=== PATIENT | female | born 1945 | race Caucasian/White ===

== ENCOUNTER 2019-01-31 11:43 | Inpatient (IN) ==
[2019-01-31] MEDS ORDERED: SODIUM CHLORIDE 0.9% 1,000 ML IV STA ×2 (12:15→13:57)
[2019-01-31] MEDS ORDERED: LEVOFLOXACIN INJ 750 MG in PREMIX 1 EACH IV STA (12:15)
[2019-01-31 12:59] LABS: Basophils # 0.1 10*3/uL (0.0-0.2); Basophils % 0.6 % (0.0-0.8); Eosinophils % 0.3 % (0.00-10.9); Hematocrit 44.9 VOL% (35.7-47.0); Hemoglobin 13.5 GM/DL (12.0-16.0); Immature Granulocytes % 0.7 %; Lymphocytes # 2.3 10*3/uL (1.4-4.0); Lymphocytes % 15.2 % (21.3-54.2); Mean Corpuscular HGB Conc 30.1 GM/DL (32-36); Mean Corpuscular Volume 102.3 FL (87-102); Mean Platelet Volume 11.2 FL (9.6-12.0); Monocytes % 9.6 % (1.7-12.7); NRBC # 0.06 10*3/uL; Neutrophils % 73.6 % (38.7-73.9); Platelet Count 325 T/CUMM (130-400); Red Blood Count 4.39 MC/CUMM (3.8-5.5); White Blood Count 15.1 T/CUMM (4-12)
[2019-01-31 13:03] LABS: Albumin 2.7 G/DL (3.4-5.0); Bilirubin,Total 0.7 MG/DL (0.2-1.0); Calcium 8.6 MG/DL (8.5-10.1); Osmolality,Calculated 314.9 MOS/KG (273-304)
[2019-01-31 13:09] LABS: Free T4 (Free Thyroxine) 1.82 NG/DL (0.76-1.46); Thyroid Stimulating Hormone 1.2 uIU/ml (0.358-3.74)
[2019-01-31 13:32] LABS: Apearance,Urine CLOUDY (Clear); Bacteria,Urine Many /HPF (Few); Bilirubin,Urine Negative (Negative); Blood, Urine Moderate mg/dL (Negative); Glucose,Urine (UA) 50 mg/dL (Negative); Ketones,Urine Negative (Negative); Mucus,Urine Few /LPF (Occasional); Nitrite,Urine Positive (Negative); Protein,Urine 100 MG/DL; RBC,Urine 50 /HPF (0-4); Squamous Epithelial Cell,Urine Occasional /HPF (0-10); Urine Specific Gravity 1.018 (1.001-1.035); WBC,Urine 256 /HPF (0-6)
[2019-01-31 13:34] LABS: Urine Color Yellow (Yellow)
[2019-01-31] MEDS ORDERED: NICOTINE 21 MG/24 HR PATCH TRANSDERM PRN (14:33)
[2019-01-31] MEDS ORDERED: guaiFENesin/DM ER 600-30 MG TABLET PO PRN (14:33)
[2019-01-31] MEDS ORDERED: ACETAMINOPHEN 325 MG TABLET PO PRN (14:33)
[2019-01-31] MEDS ORDERED: ZALEPLON 5 MG CAPSULE PO PRN (14:33)
[2019-01-31] MEDS ORDERED: DOCUSATE SODIUM 100 MG CAPSULE PO PRN (14:33)
[2019-01-31] MEDS ORDERED: PROMETHAZINE 25 MG TABLET PO PRN (14:33)
[2019-01-31] MEDS ORDERED: LACTATED RINGERS 1,000 ML IV ONE (14:35)
[2019-01-31] MEDS ORDERED: ALBUTEROL 2.5 MG/3 ML NEB RESP TX PRN (14:52)
[2019-01-31] MEDS ORDERED: DEXTROSE 5% NACL 0.45% 1,000 ML IV SCH (15:00)
[2019-01-31] MEDS ORDERED: DEXTROSE 10% 25 GM/250 ML BAG IV PRN (15:03)
[2019-01-31] MEDS ORDERED: GLUCAGON 1 MG VIAL IM PRN (15:03)
[2019-01-31] MEDS: INSULIN REGULAR 100 UNIT/ML SUBCUT SCH ×2 (17:26→20:26)
[2019-01-31] MEDS ORDERED: FLUCONAZOLE INJ 200 MG in PREMIX 1 EACH IV ONE (18:00)
[2019-01-31] MEDS: SODIUM CHLORIDE 0.45% 1,000 ML IV SCH (18:36)
[2019-01-31] MEDS: ALBUTEROL/IPRATROPIUM 3 ML NEB RESP TX SCH (19:20)
[2019-01-31] MEDS: GENTAMICIN INJ 360 MG in SODIUM CHLORIDE 0.9% 100 ML IV SCH (20:09)
[2019-01-31] MEDS: SERTRALINE 50 MG TABLET PO SCH (20:27)
[2019-01-31] MEDS: ATORVASTATIN 20 MG TABLET PO SCH (20:27)
[2019-01-31] MEDS: ENOXAPARIN 40 MG/0.4 ML SYRINGE SUBCUT SCH (20:27)
[2019-02-01] MEDS: ALBUTEROL/IPRATROPIUM 3 ML NEB RESP TX SCH ×5 (01:25→20:37)
[2019-02-01] MEDS: SODIUM CHLORIDE 0.45% 1,000 ML IV SCH ×2 (02:41→08:29)
[2019-02-01 04:11] LABS: Albumin 2.2 G/DL (3.4-5.0); Bilirubin,Total 1.1 MG/DL (0.2-1.0); Calcium 7.7 MG/DL (8.5-10.1); Osmolality,Calculated 307.9 MOS/KG (273-304); Total Protein 5.9 G/DL (6.4-8.3)
[2019-02-01 04:31] LABS: Basophils # 0.1 10*3/uL (0.0-0.2); Basophils % 0.5 % (0.0-0.8); Eosinophils # 0.1 10*3/uL (0.0-0.87); Eosinophils % 0.9 % (0.00-10.9); Hematocrit 38.6 VOL% (35.7-47.0); Hemoglobin 11.1 GM/DL (12.0-16.0); Immature Granulocytes % 0.8 %; Lymphocytes # 2.6 10*3/uL (1.4-4.0); Lymphocytes % 19.9 % (21.3-54.2); Mean Corpuscular HGB Conc 28.8 GM/DL (32-36); Mean Corpuscular Volume 105.2 FL (87-102); Mean Platelet Volume 11.6 FL (9.6-12.0); Monocytes % 6.9 % (1.7-12.7); NRBC # 0.03 10*3/uL; Platelet Count 229 T/CUMM (130-400); Red Blood Count 3.67 MC/CUMM (3.8-5.5); Red Cell Distribution Width 13.4 % (9.3-17.3); White Blood Count 13.2 T/CUMM (4-12)
[2019-02-01 04:59] LABS: Anisocytosis Slight; Platelet Estimate Adequate
[2019-02-01] MEDS: DEXTROSE 5% 1,000 ML IV SCH ×3 (08:28→19:30)
[2019-02-01] MEDS: INSULIN REGULAR 100 UNIT/ML SUBCUT SCH ×4 (08:28→20:28)
[2019-02-01] MEDS ORDERED: LEVOTHYROXINE 175 MCG TABLET PO SCH (09:00)
[2019-02-01] MEDS: MULTIVITAMIN (CENTRUM) TABLET PO SCH (09:17)
[2019-02-01] MEDS: CLOPIDOGREL 75 MG TABLET PO SCH (09:17)
[2019-02-01] MEDS: LEVOTHYROXINE 150 MCG TABLET PO SCH (09:17)
[2019-02-01] MEDS: CHOLECALCIFEROL 400 UNIT TABLET PO SCH (09:17)
[2019-02-01] MEDS: PANTOPRAZOLE 40 MG TABLET PO SCH (09:18)
[2019-02-01] MEDS: NYSTATIN CREAM 15 GM TUBE TOP SCH (09:18)
[2019-02-01] MEDS: LEVOFLOXACIN INJ 750 MG in PREMIX 1 EACH IV SCH (12:34)
[2019-02-01] MEDS: LIDOCAINE 5% PATCH TRANSDERM SCH (14:40)
[2019-02-01] MEDS ORDERED: MAGNESIUM CITRATE 300 ML BOTTLE PO ONE (16:47)
[2019-02-01] MEDS: ENOXAPARIN 40 MG/0.4 ML SYRINGE SUBCUT SCH (20:28)
[2019-02-01] MEDS: GENTAMICIN INJ 360 MG in SODIUM CHLORIDE 0.9% 100 ML IV SCH (20:28)
[2019-02-01] MEDS: SERTRALINE 50 MG TABLET PO SCH (20:29)
[2019-02-01] MEDS: ATORVASTATIN 20 MG TABLET PO SCH (20:29)
[2019-02-02 05:30] LABS: Basophils # 0.1 10*3/uL (0.0-0.2); Basophils % 0.4 % (0.0-0.8); Eosinophils # 0.3 10*3/uL (0.0-0.87); Eosinophils % 2.2 % (0.00-10.9); Hematocrit 35.7 VOL% (35.7-47.0); Hemoglobin 10.9 GM/DL (12.0-16.0); Immature Granulocytes % 0.6 %; Immature Granulocytes Absolute 0.08 #; Lymphocytes # 1.7 10*3/uL (1.4-4.0); Lymphocytes % 12.9 % (21.3-54.2); Mean Corpuscular HGB Conc 30.5 GM/DL (32-36); Mean Corpuscular Volume 100.6 FL (87-102); Mean Platelet Volume 10.7 FL (9.6-12.0); Monocytes % 6.2 % (1.7-12.7); NRBC # 0.02 10*3/uL; Neutrophils % 77.7 % (38.7-73.9); Platelet Count 220 T/CUMM (130-400); Red Blood Count 3.55 MC/CUMM (3.8-5.5); Red Cell Distribution Width 12.8 % (9.3-17.3); White Blood Count 13.4 T/CUMM (4-12)
[2019-02-02 05:49] LABS: Calcium 8.6 MG/DL (8.5-10.1); Osmolality,Calculated 280.7 MOS/KG (273-304)
[2019-02-02] MEDS: DEXTROSE 5% 1,000 ML IV SCH (06:05)
[2019-02-02] MEDS: LEVOTHYROXINE 150 MCG TABLET PO SCH (06:50)
[2019-02-02] MEDS: ALBUTEROL/IPRATROPIUM 3 ML NEB RESP TX SCH ×3 (07:56→20:21)
[2019-02-02] MEDS: CLOPIDOGREL 75 MG TABLET PO SCH (08:37)
[2019-02-02] MEDS: MULTIVITAMIN (CENTRUM) TABLET PO SCH (08:37)
[2019-02-02] MEDS: CHOLECALCIFEROL 400 UNIT TABLET PO SCH (08:37)
[2019-02-02] MEDS: PANTOPRAZOLE 40 MG TABLET PO SCH (08:37)
[2019-02-02] MEDS: INSULIN REGULAR 100 UNIT/ML SUBCUT SCH ×4 (08:37→21:54)
[2019-02-02] MEDS: NYSTATIN CREAM 15 GM TUBE TOP SCH (08:38)
[2019-02-02] MEDS: SODIUM CHLORIDE 0.45% 1,000 ML IV SCH ×2 (09:17→20:10)
[2019-02-02] MEDS: LEVOFLOXACIN INJ 750 MG in PREMIX 1 EACH IV SCH (13:30)
[2019-02-02] MEDS: LIDOCAINE 5% PATCH TRANSDERM SCH (13:58)
[2019-02-02] MEDS ORDERED: BISACODYL 10 MG SUPP RECTAL ONE (20:37)
[2019-02-02] MEDS: GENTAMICIN INJ 360 MG in SODIUM CHLORIDE 0.9% 100 ML IV SCH (21:12)
[2019-02-02] MEDS: SERTRALINE 50 MG TABLET PO SCH (21:13)
[2019-02-02] MEDS: ENOXAPARIN 40 MG/0.4 ML SYRINGE SUBCUT SCH (21:13)
[2019-02-02] MEDS: ATORVASTATIN 20 MG TABLET PO SCH (21:13)
[2019-02-03] MEDS: ALBUTEROL/IPRATROPIUM 3 ML NEB RESP TX SCH ×3 (01:38→13:03)
[2019-02-03 05:34] LABS: Calcium 8.4 MG/DL (8.5-10.1); Osmolality,Calculated 281.3 MOS/KG (273-304)
[2019-02-03 05:45] LABS: Basophils % 0.2 % (0.0-0.8); Eosinophils # 0.1 10*3/uL (0.0-0.87); Eosinophils % 0.7 % (0.00-10.9); Hematocrit 33.7 VOL% (35.7-47.0); Hemoglobin 10.5 GM/DL (12.0-16.0); Immature Granulocytes % 0.9 %; Immature Granulocytes Absolute 0.11 #; Lymphocytes % 7.6 % (21.3-54.2); Mean Corpuscular HGB Conc 31.2 GM/DL (32-36); Mean Corpuscular Volume 98.5 FL (87-102); Mean Platelet Volume 11.1 FL (9.6-12.0); Monocytes % 6.2 % (1.7-12.7); Neutrophils % 84.4 % (38.7-73.9); Platelet Count 239 T/CUMM (130-400); Red Blood Count 3.42 MC/CUMM (3.8-5.5); Red Cell Distribution Width 12.6 % (9.3-17.3); White Blood Count 12.7 T/CUMM (4-12)
[2019-02-03] MEDS: LEVOTHYROXINE 150 MCG TABLET PO SCH (06:07)
[2019-02-03] MEDS ORDERED: cefTRIAXone 1,000 MG in SYRINGE 1 EACH IV SCH (08:00)
[2019-02-03] MEDS ORDERED: METOPROLOL TARTRATE 50 MG TABLET PO SCH (09:00)
[2019-02-03] MEDS ORDERED: LACTULOSE 20 GM/30 ML UDCUP PO SCH (09:00)
[2019-02-03] MEDS: PANTOPRAZOLE 40 MG TABLET PO SCH (10:08)
[2019-02-03] MEDS: CHOLECALCIFEROL 400 UNIT TABLET PO SCH (10:08)
[2019-02-03] MEDS: MULTIVITAMIN (CENTRUM) TABLET PO SCH (10:08)
[2019-02-03] MEDS: CLOPIDOGREL 75 MG TABLET PO SCH (10:08)
[2019-02-03] MEDS: INSULIN REGULAR 100 UNIT/ML SUBCUT SCH ×2 (10:09→12:43)
[2019-02-03] MEDS: SODIUM CHLORIDE 0.45% 1,000 ML IV SCH (10:09)
[2019-02-03] MEDS: NYSTATIN CREAM 15 GM TUBE TOP SCH (12:44)
[2019-02-03 12:46] VITALS: BP 123/53
== END 2019-02-03 13:30 | DRG 690 ==
LOC: EDUNIT# → EDBD → N.ED 11:43 → N.EDINP 14:33 → SUATTDRO 14:33 → N.EDINP 16:08 → N.5E 16:31 → N.CC 17:28 → N.2E 02-02 16:05
PROVIDERS: ADMIT Internal Medicine; ATTEND Internal Medicine

== ENCOUNTER 2019-02-26 09:20 | Observation (INO) ==
[2019-02-26 10:07] LABS: Basophils # 0.1 10*3/uL (0.0-0.2); Basophils % 0.7 % (0.0-0.8); Eosinophils # 0.3 10*3/uL (0.0-0.87); Eosinophils % 3.8 % (0.00-10.9); Hematocrit 47.6 VOL% (35.7-47.0); Hemoglobin 14.8 GM/DL (12.0-16.0); Immature Granulocytes % 0.4 %; Immature Granulocytes Absolute 0.03 #; Lymphocytes # 1.3 10*3/uL (1.4-4.0); Mean Corpuscular HGB Conc 31.1 GM/DL (32-36); Mean Corpuscular Volume 98.1 FL (87-102); Mean Platelet Volume 10.7 FL (9.6-12.0); Monocytes % 10.2 % (1.7-12.7); Neutrophils % 66.9 % (38.7-73.9); Platelet Count 214 T/CUMM (130-400); Red Blood Count 4.85 MC/CUMM (3.8-5.5); Red Cell Distribution Width 13.3 % (9.3-17.3); White Blood Count 7.4 T/CUMM (4-12)
[2019-02-26 10:27] LABS: Albumin 3.5 G/DL (3.4-5.0); Bilirubin,Total 0.7 MG/DL (0.2-1.0); Calcium 9.7 MG/DL (8.5-10.1); Osmolality,Calculated 288.1 MOS/KG (273-304); Total Protein 7.6 G/DL (6.4-8.3)
[2019-02-26 10:38] LABS: Platelet Estimate Normal
[2019-02-26 10:39] LABS: Anisocytosis 1+; Macrocytosis 1+
[2019-02-26 10:59] LABS: Apearance,Urine CLOUDY (Clear); Bacteria,Urine Many /HPF (Few); Bilirubin,Urine Negative (Negative); Blood, Urine Small mg/dL (Negative); Glucose,Urine (UA) Negative (Negative); Ketones,Urine Negative (Negative); Mucus,Urine Occasional /LPF (Occasional); Nitrite,Urine Negative (Negative); Protein,Urine 30 MG/DL; RBC,Urine 22 /HPF (0-4); Squamous Epithelial Cell,Urine Occasional /HPF (0-10); Urine Color Yellow (Yellow); Urine Specific Gravity 1.053 (1.001-1.035); Urine Urobilinogen < 2.0 EU/DL (0.2-1.0); WBC,Urine 257 /HPF (0-6)
[2019-02-26] MEDS ORDERED: SODIUM PHOSPHATE ENEMA 133 ML BOTTLE RECTAL PRN (13:25)
[2019-02-26] MEDS ORDERED: MAGNESIUM CITRATE 300 ML BOTTLE PO ONE (15:04)
[2019-02-26] MEDS ORDERED: INFLUENZA VIRUS VACCINE 0.5 ML SYRINGE IM ONE (15:26)
[2019-02-26] MEDS: SODIUM CHLORIDE 0.9% 1,000 ML IV SCH (16:12)
[2019-02-26] MEDS: MEROPENEM 500 MG in SODIUM CHLORIDE 0.9% 100 ML IV SCH ×2 (16:17→22:40)
[2019-02-26] MEDS: POLYETHYLENE GLYCOL POWDER 17 GM PACK PO SCH (16:19)
[2019-02-26] MEDS: SERTRALINE 50 MG TABLET PO SCH (21:29)
[2019-02-26] MEDS: ATORVASTATIN 20 MG TABLET PO SCH (21:29)
[2019-02-26] MEDS: METOPROLOL TARTRATE 50 MG TABLET PO SCH (21:29)
[2019-02-26] MEDS: METHENAMINE HIPPURATE 1 GM TABLET PO SCH (21:29)
[2019-02-26] MEDS: DOCUSATE SODIUM 100 MG CAPSULE PO SCH (21:29)
[2019-02-27] MEDS: MEROPENEM 500 MG in SODIUM CHLORIDE 0.9% 100 ML IV SCH ×2 (04:23→12:04)
[2019-02-27 05:41] LABS: Basophils % 0.5 % (0.0-0.8); Eosinophils # 0.2 10*3/uL (0.0-0.87); Eosinophils % 1.9 % (0.00-10.9); Hematocrit 44.5 VOL% (35.7-47.0); Hemoglobin 14.1 GM/DL (12.0-16.0); Immature Granulocytes % 0.3 %; Immature Granulocytes Absolute 0.03 #; Lymphocytes # 2.1 10*3/uL (1.4-4.0); Lymphocytes % 23.4 % (21.3-54.2); Mean Corpuscular HGB Conc 31.7 GM/DL (32-36); Mean Corpuscular Volume 96.9 FL (87-102); Mean Platelet Volume 10.7 FL (9.6-12.0); Monocytes % 9.1 % (1.7-12.7); Neutrophils % 64.8 % (38.7-73.9); Platelet Count 235 T/CUMM (130-400); Red Blood Count 4.59 MC/CUMM (3.8-5.5); Red Cell Distribution Width 13.1 % (9.3-17.3); White Blood Count 8.8 T/CUMM (4-12)
[2019-02-27 06:17] LABS: Calcium 9.2 MG/DL (8.5-10.1); Osmolality,Calculated 285.1 MOS/KG (273-304); Thyroid Stimulating Hormone 2.17 uIU/ml (0.358-3.74)
[2019-02-27] MEDS: LEVOTHYROXINE 175 MCG TABLET PO SCH (07:02)
[2019-02-27] MEDS ORDERED: HYDROmorphone 2 MG/1 ML VIAL IV PRN (12:58)
[2019-02-27] MEDS: NYSTATIN CREAM 15 GM TUBE TOP SCH (13:08)
[2019-02-27] MEDS: PANTOPRAZOLE 40 MG TABLET PO SCH (13:08)
[2019-02-27] MEDS: POTASSIUM CHLORIDE 20 MEQ/15 ML UDCUP PO SCH (13:08)
[2019-02-27] MEDS: CHOLECALCIFEROL 400 UNIT TABLET PO SCH (13:08)
[2019-02-27] MEDS: CLOPIDOGREL 75 MG TABLET PO SCH (13:08)
[2019-02-27] MEDS: amLODIPine 5 MG TABLET PO SCH (13:08)
[2019-02-27] MEDS: METHENAMINE HIPPURATE 1 GM TABLET PO SCH ×2 (13:09→20:21)
[2019-02-27] MEDS: MULTIVITAMIN (CENTRUM) TABLET PO SCH (13:09)
[2019-02-27] MEDS: FUROSEMIDE 20 MG TABLET PO SCH (13:09)
[2019-02-27] MEDS: DOCUSATE SODIUM 100 MG CAPSULE PO SCH ×2 (13:09→20:21)
[2019-02-27] MEDS: METOPROLOL TARTRATE 50 MG TABLET PO SCH ×2 (13:09→20:21)
[2019-02-27] MEDS: POLYETHYLENE GLYCOL POWDER 17 GM PACK PO SCH (13:09)
[2019-02-27] MEDS: QUINAPRIL 20 MG TABLET PO SCH (13:09)
[2019-02-27] MEDS: CEFEPIME 1,000 MG in SODIUM CHLORIDE 0.9% 100 ML IV SCH ×2 (15:06→20:21)
[2019-02-27] MEDS: SODIUM CHLORIDE 0.9% 1,000 ML IV SCH ×2 (19:15→20:20)
[2019-02-27] MEDS: ATORVASTATIN 20 MG TABLET PO SCH (20:20)
[2019-02-27] MEDS: SERTRALINE 50 MG TABLET PO SCH (20:21)
[2019-02-28] MEDS: CEFEPIME 1,000 MG in SODIUM CHLORIDE 0.9% 100 ML IV SCH ×2 (02:36→10:39)
[2019-02-28 06:01] LABS: Basophils # 0.1 10*3/uL (0.0-0.2); Basophils % 0.6 % (0.0-0.8); Eosinophils # 0.2 10*3/uL (0.0-0.87); Eosinophils % 2.9 % (0.00-10.9); Hematocrit 44.2 VOL% (35.7-47.0); Hemoglobin 13.4 GM/DL (12.0-16.0); Immature Granulocytes % 0.4 %; Immature Granulocytes Absolute 0.03 #; Lymphocytes # 2.2 10*3/uL (1.4-4.0); Lymphocytes % 26.8 % (21.3-54.2); Mean Corpuscular HGB Conc 30.3 GM/DL (32-36); Mean Corpuscular Volume 101.1 FL (87-102); Mean Platelet Volume 10.3 FL (9.6-12.0); Monocytes % 12.2 % (1.7-12.7); Neutrophils % 57.1 % (38.7-73.9); Platelet Count 213 T/CUMM (130-400); Red Blood Count 4.37 MC/CUMM (3.8-5.5); Red Cell Distribution Width 13.2 % (9.3-17.3); White Blood Count 8.3 T/CUMM (4-12)
[2019-02-28 06:27] LABS: Calcium 8.6 MG/DL (8.5-10.1); Osmolality,Calculated 279.4 MOS/KG (273-304)
[2019-02-28] MEDS: LEVOTHYROXINE 175 MCG TABLET PO SCH (07:00)
[2019-02-28] MEDS: QUINAPRIL 20 MG TABLET PO SCH (10:38)
[2019-02-28] MEDS: FUROSEMIDE 20 MG TABLET PO SCH (10:38)
[2019-02-28] MEDS: MULTIVITAMIN (CENTRUM) TABLET PO SCH (10:38)
[2019-02-28] MEDS: METOPROLOL TARTRATE 50 MG TABLET PO SCH (10:38)
[2019-02-28] MEDS: amLODIPine 5 MG TABLET PO SCH (10:38)
[2019-02-28] MEDS: METHENAMINE HIPPURATE 1 GM TABLET PO SCH (10:38)
[2019-02-28] MEDS: POTASSIUM CHLORIDE 20 MEQ/15 ML UDCUP PO SCH (10:38)
[2019-02-28] MEDS: PANTOPRAZOLE 40 MG TABLET PO SCH (10:38)
[2019-02-28] MEDS: CHOLECALCIFEROL 400 UNIT TABLET PO SCH (10:38)
[2019-02-28] MEDS: CLOPIDOGREL 75 MG TABLET PO SCH (10:38)
[2019-02-28] MEDS: DOCUSATE SODIUM 100 MG CAPSULE PO SCH (10:38)
[2019-02-28] MEDS: NYSTATIN CREAM 15 GM TUBE TOP SCH (10:39)
[2019-02-28] MEDS: POLYETHYLENE GLYCOL POWDER 17 GM PACK PO SCH (10:39)
[2019-02-28 12:09] VITALS: BP 129/48
[2019-02-28] MEDS: SODIUM CHLORIDE 0.9% 1,000 ML IV SCH (12:23)
== END 2019-02-28 15:09 | disposition swing bed (61) ==
LOC: N.EDINP 09:20 → N.ED 09:20 → N.2E 13:47
PROVIDERS: ADMIT Internal Medicine; ATTEND Internal Medicine